=== PATIENT | male | born 1950 | race Hispanic/Latino ===

== ENCOUNTER 2016-10-29 17:13 | Inpatient (IN) | payer MEDICARE ==
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
[2016-10-29 18:29] LABS: BASO # 0.1 K/uL (0.0-0.2); EOS # 0.5 K/uL (0.0-0.7); EOS % 6.3 % (0.0-4.0); HEMOGLOBIN 11.8 g/dL (12.0-18.0); LYMPH # 1.8 K/uL (1.0-4.3); MEAN CELL VOLUME 94.1 fl (80.0-94.0); MEAN CORPUSCULAR HEMOGLOBIN 31.1 pg (27.0-31.0); MEAN CORPUSCULAR HGB CONC 33.1 g/dL (33.0-37.0); MEAN PLATELET VOLUME 8.8 fl (7.2-11.7); MONO # 0.7 K/uL (0.0-0.8); MONO % 9.1 % (0.0-10.0); NEUT # 4.6 K/uL (1.8-7.0); NEUT % 59.6 % (50.0-75.0); NRBC % 0.1 % (0.0-0.0); RBC 3.81 Mil/uL (4.40-5.90); RED CELL DISTRIBUTION WIDTH 15.7 % (11.5-14.5); WHITE BLOOD COUNT 7.7 K/uL (4.8-10.8)
[2016-10-29 18:39] LABS: ALB/GLOB RATIO 1.3 (1.0-2.1); ALBUMIN 4.3 g/dL (3.5-5.0); ALT/SGPT 28 U/L (21-72); AST/SGOT 42 U/L (17-59); BLOOD UREA NITROGEN 23 mg/dl (9-20); CALCIUM 9.1 mg/dL (8.4-10.2); GFR AFRICAN-AMERICAN > 60; GFR NON-AFRICAN AMERICAN > 60
[2016-10-29 19:13] LABS: URINE BILIRUBIN NEGATIVE (NEGATIVE); URINE BLOOD LARGE (NEGATIVE); URINE GLUCOSE (UA) NEGATIVE (Normal)
[2016-10-29 19:15] LABS: URINE NITRATE NEGATIVE (NEGATIVE); URINE PROTEIN 100 mg/dL (NEGATIVE); URINE UROBILINOGEN 0.2 mg/dL (0.2-1.0)
[2016-10-29 19:16] LABS: URINE LEUKOCYTE ESTERASE MODERATE Leu/uL (Negative)
[2016-10-29 19:22] LABS: URINE BACTERIA FEW (<OCC); URINE CLARITY CLOUDY (Clear); URINE COLOR DARK YELLOW (YELLOW); URINE HYALINE CAST >20 /hpf (0-2)
[2016-10-29 19:23] LABS: GRANULAR CAST 12 /lpf (0-1)
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
[2016-10-30] MEDS ORDERED: Acetaminophen 650mg/20.3ml solution UD PO PRN ×2 (00:03→11:15)
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
[2016-10-30] MEDS ORDERED: Sod Polystyrene Sulf 15 gm/60 ml Oral Susp PO ONE (07:53)
[2016-10-30] MEDS: Enoxaparin 40 mg Syringe SC SCH (08:50)
[2016-10-30] MEDS: Pantoprazole 40 mg EC Tab PO SCH (08:51)
--- NOTE | 2016-10-30 09:34 | RAD ---
HISTORY: admission COMPARISON: No prior. TECHNIQUE: Chest PA and lateral FINDINGS: LUNGS: The lungs are well inflated and clear. PLEURA: No significant pleural effusion identified. No pneumothorax apparent. CARDIOVASCULAR: Normal. OSSEOUS STRUCTURES: There is mild multilevel degenerative disc disease. VISUALIZED UPPER ABDOMEN: Normal. OTHER FINDINGS: None. IMPRESSION: No active pulmonary disease.
[2016-10-30 11:35] LABS: MEAN CELL VOLUME 93.5 fl (80.0-94.0); MEAN CORPUSCULAR HEMOGLOBIN 30.9 pg (27.0-31.0); RBC 3.56 Mil/uL (4.40-5.90); RED CELL DISTRIBUTION WIDTH 15.6 % (11.5-14.5); WHITE BLOOD COUNT 8.2 K/uL (4.8-10.8)
[2016-10-30 11:56] LABS: BLOOD UREA NITROGEN 15 mg/dl (9-20); CALCIUM 8.7 mg/dL (8.4-10.2); GFR AFRICAN-AMERICAN > 60; GFR NON-AFRICAN AMERICAN > 60
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
[2016-10-30] MEDS ORDERED: Povidone Iodine Topical 10% Sol ONE (14:16)
--- NOTE | 2016-10-30 14:52 | CARD ---
APPROVED REPORT EKG Measurement Heart [id number] <Conclusion> Sinus rhythm with occasional premature ventricular complexes Otherwise normal ECG
--- NOTE | 2016-10-30 15:44 | RAD ---
PROCEDURE: Radiographs of the pelvis. HISTORY: pelvic fracture evaluate bone status COMPARISON: None. FINDINGS: BONES: There is an acute comminuted fracture in the left iliac bone with 17 mm distraction of fracture fragments. There is also probable intra-articular extension into the sacroiliac joint. JOINTS: There is mild degenerative osteoarthrosis in the hip joints, worse on the left. Sacroiliac Joints: The right sacroiliac joint is normal. There is widening of the superior left sacroiliac joint. Pubic Symphysis: Unremarkable. OTHER FINDINGS: None. IMPRESSION: Acute comminuted fracture in the left iliac bone with 17 mm distraction of fracture fragments and intra-articular extension.
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
[2016-10-31 08:20] LABS: HEMOGLOBIN 11.6 g/dL (12.0-18.0); MEAN CELL VOLUME 93.2 fl (80.0-94.0); MEAN CORPUSCULAR HEMOGLOBIN 31.2 pg (27.0-31.0); MEAN CORPUSCULAR HGB CONC 33.4 g/dL (33.0-37.0); RBC 3.71 Mil/uL (4.40-5.90); WHITE BLOOD COUNT 6.4 K/uL (4.8-10.8)
[2016-10-31 08:41] LABS: ALB/GLOB RATIO 1.3 (1.0-2.1); ALBUMIN 3.8 g/dL (3.5-5.0); ALT/SGPT 34 U/L (21-72); AST/SGOT 19 U/L (17-59); BLOOD UREA NITROGEN 10 mg/dl (9-20); CALCIUM 8.8 mg/dL (8.4-10.2); GFR AFRICAN-AMERICAN > 60; GFR NON-AFRICAN AMERICAN > 60
[2016-10-31] MEDS: Enoxaparin 40 mg Syringe SC SCH (09:08)
[2016-10-31] MEDS: Pantoprazole 40 mg EC Tab PO SCH (09:08)
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
[2016-11-01] MEDS: Pantoprazole 40 mg EC Tab PO SCH (08:44)
[2016-11-01] MEDS: Enoxaparin 40 mg Syringe SC SCH (08:44)
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
[2016-11-02] MEDS: Pantoprazole 40 mg EC Tab PO SCH (11:08)
[2016-11-02] MEDS: Enoxaparin 40 mg Syringe SC SCH (11:08)
[2016-11-02 17:00] VITALS: BP 105/67; PULSE 111; RESP 18; TEMP 98.2
[2016-11-02] MEDS ORDERED: SILVASORB ANTIMICROBIAL WOUND GEL TP SCH (17:00)
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
[2016-11-04 08:32] VITALS: O2SAT 98
== END 2016-11-02 23:00 | DRG 561 ==
LOC: H.ER 17:13 → H.ERHOLD 18:30 → H.MEDSURG1 22:55
PROVIDERS: ADMIT Family Medicine Geriatric Medicine; ATTEND Family Medicine Geriatric Medicine
DX: S32.302D Unspecified fracture of left ilium, subsequent encounter for fracture with routine healing (principal); K29.70 Gastritis, unspecified, without bleeding; Z93.3 Colostomy status; S52.601D Unspecified fracture of lower end of right ulna, subsequent encounter for closed fracture with routine healing; S22.41XD Multiple fractures of ribs, right side, subsequent encounter for fracture with routine healing; V89.2XXD Person injured in unspecified motor-vehicle accident, traffic, subsequent encounter; N40.0 Benign prostatic hyperplasia without lower urinary tract symptoms; M19.90 Unspecified osteoarthritis, unspecified site; S32.009D Unspecified fracture of unspecified lumbar vertebra, subsequent encounter for fracture with routine healing

== ENCOUNTER 2016-11-02 16:57 | Inpatient (IN) | payer MEDICARE ==
[2016-11-03 00:25] VITALS: BMI 28.8
[2016-11-03] MEDS: SILVASORB ANTIMICROBIAL WOUND GEL TP SCH ×2 (08:51→16:34)
[2016-11-03] MEDS: Pantoprazole 40 mg EC Tab PO SCH (08:52)
[2016-11-03] MEDS ORDERED: SILVASORB ANTIMICROBIAL WOUND GEL TP SCH (09:00)
--- NOTE | 2016-11-03 11:00 | RAD ---
PROCEDURE: Radiographs of the Lumbar Spine. HISTORY: R/O fracture COMPARISON: No prior. FINDINGS: BONES: Vertebral bodies are maintained in height. Transverse processes and posterior elements are intact. Normal vertebral alignment is maintained. There is no evidence of spondylolysis. There are spondylotic changes with osteophytes seen about multiple intervertebral disc spaces. DISC SPACES: Unremarkable. OTHER FINDINGS: Previously described comminuted fracture of the left iliac bone is partially visualized per IMPRESSION: No acute lumbar fracture. Spondylotic changes throughout lumbar spine. Left iliac fracture identified.
[2016-11-03 15:07] LABS: HEMOGLOBIN 11.4 g/dL (12.0-18.0); MEAN CELL VOLUME 92.7 fl (80.0-94.0); MEAN CORPUSCULAR HEMOGLOBIN 31.2 pg (27.0-31.0); MEAN CORPUSCULAR HGB CONC 33.6 g/dL (33.0-37.0); RBC 3.66 Mil/uL (4.40-5.90); RED CELL DISTRIBUTION WIDTH 15.6 % (11.5-14.5)
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
[2016-11-03 15:15] LABS: BLOOD UREA NITROGEN 20 mg/dl (9-20); CALCIUM 9.3 mg/dL (8.4-10.2); GFR AFRICAN-AMERICAN > 60; GFR NON-AFRICAN AMERICAN > 60
[2016-11-03] MEDS: Enoxaparin 40 mg Syringe SC SCH (15:35)
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
[2016-11-04] MEDS: Enoxaparin 40 mg Syringe SC SCH (08:50)
[2016-11-04] MEDS: Pantoprazole 40 mg EC Tab PO SCH (08:50)
[2016-11-04] MEDS: SILVASORB ANTIMICROBIAL WOUND GEL TP SCH ×2 (08:50→17:01)
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
--- NOTE | 2016-11-04 17:56 | CP.PCM.PN ---
Subjective - Date & Time of Evaluation Date of Evaluation: 11/04/16 Time of Evaluation: 17:55 - Subjective Subjective: Patient seen in room pain is well controlled denies sob/cp improving colostomy care PT/OT to continue to help increase functional independence Team conference for d/c planning Pain: controlled Vascular: no evidence of DVT GI: No evidence of constipation or diarrhea, has colostomy Patient continues to be an excellent acute rehabilitation candidate and will have continued wound care, pain management, PT, OT and recreational therapy to help facilitate a safe and appropriate d/c plan The patients plan was discussed in great detail in team conference. This was then discussed with the patient at length. The discussions directly impact on the patients plan of care. Please see the note for more details Will get follow up x-ray when clarify length of stay Objective - Vital Signs/Intake and Output Vital Signs (last 24 hours): Temp Pulse Resp BP Pulse Ox 98.1 F 66 21 121/72 98 11/04/16 11:50 11/04/16 11:50 11/04/16 11:50 11/04/16 11:50 11/04/16 08:12 Intake and Output: 11/04/16 11/04/16 06:59 18:59 Intake Total 400 Output Total 1600 250 Balance -1200 -250 - Medications Medications: Current Medications Acetaminophen (Tylenol 650mg/20.3ml Solution Ud) 1,000 mg PO Q8H PRN PRN Reason: Pain, Mild (1-3) Enoxaparin Sodium (Lovenox) 40 mg SC DAILY [facility] PRN Reason: Protocol Last Admin: 11/04/16 08:50 Dose: 40 mg Home Med (Alfuzosin Hcl [Uroxatral]) 10 mg PO DAILY [facility] Last Admin: 11/04/16 12:21 Dose: 10 mg Ketorolac Tromethamine (Toradol) 15 mg IVP Q6 PRN PRN Reason: Pain, severe (8-10) Pantoprazole Sodium (Protonix Ec Tab) 40 mg PO DAILY [facility] Last Admin: 11/04/16 08:50 Dose: 40 mg Zolpidem Tartrate (Ambien) 5 mg PO HS PRN PRN Reason: Sleep Last Admin: 11/04/16 00:51 Dose: 5 mg - Labs Labs: 11/03/16 14:45 11/03/16 14:45
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
[2016-11-05] MEDS: Pantoprazole 40 mg EC Tab PO SCH (09:38)
[2016-11-05] MEDS: Enoxaparin 40 mg Syringe SC SCH (09:38)
[2016-11-05] MEDS: SILVASORB ANTIMICROBIAL WOUND GEL TP SCH ×3 (09:39→21:41)
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
[2016-11-06 07:16] LABS: HEMOGLOBIN 10.4 g/dL (12.0-18.0); MEAN CORPUSCULAR HEMOGLOBIN 31.5 pg (27.0-31.0); MEAN CORPUSCULAR HGB CONC 33.9 g/dL (33.0-37.0); RBC 3.32 Mil/uL (4.40-5.90); RED CELL DISTRIBUTION WIDTH 15.3 % (11.5-14.5)
[2016-11-06] MEDS: Enoxaparin 40 mg Syringe SC SCH (09:10)
[2016-11-06] MEDS: Pantoprazole 40 mg EC Tab PO SCH (09:10)
[2016-11-06] MEDS: SILVASORB ANTIMICROBIAL WOUND GEL TP SCH ×2 (09:11→21:46)
--- NOTE | 2016-11-06 13:20 | CP.PCM.PN ---
Subjective - Date & Time of Evaluation Date of Evaluation: 11/06/16 Time of Evaluation: 13:18 - Subjective Subjective: multiple fractures Discussed with ortho he will be NWB on right UE for total of 6 weeks from the 10/11/16 surgery and 3 more weeks for the left LE I have discussed this at length with Jarvis will get PFRW for d/c and get home PT and VNS making great progress Objective - Vital Signs/Intake and Output Vital Signs (last 24 hours): Temp Pulse Resp BP Pulse Ox 97.5 F L 63 18 133/86 99 11/06/16 07:36 11/06/16 07:36 11/06/16 07:36 11/06/16 07:36 11/06/16 07:36 Intake and Output: 11/06/16 11/06/16 06:59 18:59 Intake Total 500 Output Total 1000 Balance -500 - Medications Medications: Current Medications Acetaminophen (Tylenol 650mg/20.3ml Solution Ud) 1,000 mg PO Q8H PRN PRN Reason: Pain, Mild (1-3) Enoxaparin Sodium (Lovenox) 40 mg SC DAILY [facility] PRN Reason: Protocol Last Admin: 11/06/16 09:10 Dose: 40 mg Home Med (Patient's Own Medication) 1 unit PO BID [facility] Ketorolac Tromethamine (Toradol) 15 mg IVP Q6 PRN PRN Reason: Pain, severe (8-10) Pantoprazole Sodium (Protonix Ec Tab) 40 mg PO DAILY [facility] Last Admin: 11/06/16 09:10 Dose: 40 mg Zolpidem Tartrate (Ambien) 5 mg PO HS PRN PRN Reason: Sleep Last Admin: 11/06/16 00:45 Dose: 5 mg - Labs Labs: 11/06/16 05:55 11/03/16 14:45
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
[2016-11-06] MEDS ORDERED: ALFUZOSIN 10 MG PO SCH (17:00)
[2016-11-06] MEDS: ALFUZOSIN 10 MG PO SCH (20:11)
[2016-11-07 03:56] LABS: SQUAMOUS EPITHIAL < 1 /hpf (0-5); URINE BACTERIA OCC (<OCC); URINE BILIRUBIN NEGATIVE (NEGATIVE); URINE BLOOD LARGE (NEGATIVE); URINE CLARITY SLIGHTY-CLOUDY (Clear); URINE COLOR YELLOW (YELLOW); URINE GLUCOSE (UA) NEG (Normal); URINE LEUKOCYTE ESTERASE LARGE Leu/uL (Negative); URINE NITRATE NEGATIVE (NEGATIVE); URINE PROTEIN 100 mg/dL (NEGATIVE); URINE UROBILINOGEN 0.2-1.0 mg/dL (0.2-1.0)
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
[2016-11-07 07:49] LABS: BASO % 0.6 % (0.0-2.0); EOS # 0.2 K/uL (0.0-0.7); HEMOGLOBIN 10.4 g/dL (12.0-18.0); LYMPH # 1.4 K/uL (1.0-4.3); LYMPH % 28.8 % (20.0-40.0); MEAN CELL VOLUME 92.8 fl (80.0-94.0); MEAN CORPUSCULAR HEMOGLOBIN 30.5 pg (27.0-31.0); MEAN CORPUSCULAR HGB CONC 32.8 g/dL (33.0-37.0); MEAN PLATELET VOLUME 8.5 fl (7.2-11.7); MONO # 0.5 K/uL (0.0-0.8); MONO % 9.5 % (0.0-10.0); NEUT # 2.8 K/uL (1.8-7.0); NEUT % 56.1 % (50.0-75.0); RBC 3.41 Mil/uL (4.40-5.90); RED CELL DISTRIBUTION WIDTH 15.3 % (11.5-14.5)
[2016-11-07 08:01] LABS: IRON 38 ug/dL (49-181)
[2016-11-07 08:10] LABS: % IRON SATURATION 18 % (20-55); TOTAL IRON BINDING CAPACITY 215 ug/dL (250-450)
[2016-11-07] MEDS: Enoxaparin 40 mg Syringe SC SCH (08:28)
[2016-11-07] MEDS: ALFUZOSIN 10 MG PO SCH ×2 (08:28→17:39)
[2016-11-07 08:30] LABS: FERRITIN 84.9 ng/mL
[2016-11-07] MEDS: SILVASORB ANTIMICROBIAL WOUND GEL TP SCH ×2 (08:30→20:35)
[2016-11-07] MEDS: Pantoprazole 40 mg EC Tab PO SCH (08:30)
[2016-11-08] MEDS: Enoxaparin 40 mg Syringe SC SCH (08:59)
[2016-11-08] MEDS: ALFUZOSIN 10 MG PO SCH ×2 (09:00→18:50)
[2016-11-08] MEDS: SILVASORB ANTIMICROBIAL WOUND GEL TP SCH ×2 (09:00→20:48)
[2016-11-08] MEDS: Pantoprazole 40 mg EC Tab PO SCH (09:00)
[2016-11-09] MEDS: ALFUZOSIN 10 MG PO SCH ×2 (08:46→16:57)
[2016-11-09] MEDS: Enoxaparin 40 mg Syringe SC SCH (08:46)
[2016-11-09] MEDS: SILVASORB ANTIMICROBIAL WOUND GEL TP SCH (08:46)
[2016-11-09] MEDS: Pantoprazole 40 mg EC Tab PO SCH (08:46)
[2016-11-09] MEDS: Acetaminophen 650mg/20.3ml solution UD PO PRN (16:56)
--- NOTE | 2016-11-09 17:31 | CP.PCM.PN ---
Subjective - Date & Time of Evaluation Date of Evaluation: 11/09/16 Time of Evaluation: 17:29 - Subjective Subjective: Patient seen in room His left inguinal wound is healing very nicely It is pea-sized opening now and I will change to Iodosorb now that the hydrocel will not fit in pain is controlled I have ordered x-rays and colostomy supplies and answered a multitude of questions as well set for d/c home 11/10/16 Objective - Vital Signs/Intake and Output Vital Signs (last 24 hours): Temp Pulse Resp BP Pulse Ox 98.3 F 74 20 138/74 95 11/09/16 09:31 11/09/16 09:31 11/09/16 09:31 11/09/16 09:31 11/09/16 09:31 - Medications Medications: Current Medications Acetaminophen (Tylenol 650mg/20.3ml Solution Ud) 1,000 mg PO Q8H PRN PRN Reason: Pain, Mild (1-3) Last Admin: 11/09/16 16:56 Dose: 1,000 mg Cadexomer Iodine (Iodosorb) 1 applic TOP DAILY [facility] Home Med (Patient's Own Medication) 1 unit PO BID [facility] Last Admin: 11/09/16 16:57 Dose: 1 unit Pantoprazole Sodium (Protonix Ec Tab) 40 mg PO DAILY [facility] Last Admin: 11/09/16 08:46 Dose: 40 mg Phenazopyridine HCl (Pyridium) 200 mg PO BID [facility] Stop: 11/14/16 17:01 Last Admin: 11/09/16 16:55 Dose: 200 mg Zolpidem Tartrate (Ambien) 5 mg PO HS PRN PRN Reason: Sleep Last Admin: 11/06/16 00:45 Dose: 5 mg - Labs Labs: 11/07/16 05:30 11/03/16 14:45
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
[2016-11-10 07:35] VITALS: BP 133/83; PULSE 84; RESP 18; TEMP 98.8; O2SAT 96
[2016-11-10] MEDS: ALFUZOSIN 10 MG PO SCH (08:44)
[2016-11-10] MEDS: Pantoprazole 40 mg EC Tab PO SCH (08:45)
[2016-11-10] MEDS ORDERED: Iodine 0.9% GEL TOP SCH (09:00)
[2016-11-10] MEDS: Acetaminophen 650mg/20.3ml solution UD PO PRN (11:36)
--- NOTE | 2016-11-10 20:48 | CP.PCM.PN ---
Subjective - Date & Time of Evaluation Date of Evaluation: 11/10/16 Time of Evaluation: 22:22 - Subjective Subjective: Doing well Objective - Vital Signs/Intake and Output Vital Signs (last 24 hours): Temp Pulse Resp BP Pulse Ox 98.8 F 84 18 133/83 96 11/10/16 07:34 11/10/16 07:34 11/10/16 07:34 11/10/16 07:34 11/10/16 07:34 - Labs Labs: 11/07/16 05:30 11/03/16 14:45 - Respiratory Exam Respiratory Exam: NORMAL BREATHING PATTERN - Cardiovascular Exam Cardiovascular Exam: REGULAR RHYTHM - GI/Abdominal Exam GI & Abdominal Exam: Normal Bowel Sounds Assessment and Plan - Assessment and Plan (Free Text) Assessment: S/P [facility] with colostomy bag Left iliac bone comminuted fracture, S/P ORIF right distal ulnar fracture 4 right rib fractures Acute Rehab Physiatry Hx LS fx ? xrays negative BPH Saucedo removed Uraxitol increased Urology
== END 2016-11-10 13:24 | disposition home health service (06) | DRG 560 ==
PROVIDERS: ADMIT Family Medicine Geriatric Medicine; ATTEND Family Medicine Geriatric Medicine
PROC: F07L6FZ Therapeutic Exercise Treatment of Musculoskeletal System - Lower Back / Lower Extremity using Assistive, Adaptive, Supportive or Protective Equipment (ICD-10-PCS; principal; 2016-11-02)
PROC: F07Z9FZ Gait Training/Functional Ambulation Treatment using Assistive, Adaptive, Supportive or Protective Equipment (ICD-10-PCS; 2016-11-02)
PROC: F08Z4ZZ Home Management Treatment (ICD-10-PCS; 2016-11-02)
DX: S32.302D Unspecified fracture of left ilium, subsequent encounter for fracture with routine healing (principal); N13.8 Other obstructive and reflux uropathy; N40.0 Benign prostatic hyperplasia without lower urinary tract symptoms; Z93.3 Colostomy status; S52.601D Unspecified fracture of lower end of right ulna, subsequent encounter for closed fracture with routine healing; S22.41XD Multiple fractures of ribs, right side, subsequent encounter for fracture with routine healing; V43.62XD Car passenger injured in collision with other type car in traffic accident, subsequent encounter; N40.1 Benign prostatic hyperplasia with lower urinary tract symptoms

== ENCOUNTER 2016-11-13 17:01 | Emergency (ER) | payer MEDICARE ==
[2016-11-13 17:01] VITALS: BMI 28.8
[2016-11-13 17:08] VITALS: TEMP 99.3; O2SAT 98
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
[2016-11-13 17:52] LABS: BASO % 0.6 % (0.0-2.0); EOS # 0.2 K/uL (0.0-0.7); HEMOGLOBIN 10.9 g/dL (12.0-18.0); LYMPH # 1.2 K/uL (1.0-4.3); LYMPH % 17.6 % (20.0-40.0); MEAN CELL VOLUME 93.3 fl (80.0-94.0); MEAN CORPUSCULAR HEMOGLOBIN 30.6 pg (27.0-31.0); MEAN CORPUSCULAR HGB CONC 32.8 g/dL (33.0-37.0); MEAN PLATELET VOLUME 8.2 fl (7.2-11.7); MONO # 0.6 K/uL (0.0-0.8); MONO % 8.7 % (0.0-10.0); NEUT # 4.7 K/uL (1.8-7.0); NEUT % 70.1 % (50.0-75.0); RBC 3.55 Mil/uL (4.40-5.90); WHITE BLOOD COUNT 6.7 K/uL (4.8-10.8)
[2016-11-13 18:10] LABS: ALB/GLOB RATIO 1.4 (1.0-2.1); ALBUMIN 3.7 g/dL (3.5-5.0); ALT/SGPT 30 U/L (21-72); AST/SGOT 16 U/L (17-59); BLOOD UREA NITROGEN 14 mg/dl (9-20); CALCIUM 8.2 mg/dL (8.4-10.2); GFR AFRICAN-AMERICAN > 60; GFR NON-AFRICAN AMERICAN > 60
[2016-11-13 18:13] LABS: INR 1.1 (0.9-1.2); PARTIAL THROMBOPLASTIN TIME 28.2 Seconds (25.6-37.1); PROTHROMBIN TIME 12.9 Seconds (9.8-13.1)
--- NOTE | 2016-11-13 18:31 | US ---
HISTORY: R/O DVT . PRIORS: None. FINDINGS: 2-D, color and duplex Doppler analysis of the lower extremity venous circulation using routine protocol from the femoral veins through the popliteal veins. Posterior tibial veins are also assessed Venous compressibility: Normal. Flow and augmentation patterns: Normal. Visualized veins upper third of calf: Normal. Eisenberg cyst: None. IMPRESSION: No sonographic or Doppler evidence for DVT in left lower extremity.
[2016-11-13 19:41] VITALS: BP 132/60; PULSE 77; RESP 16
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
== END 2016-11-13 20:14 | disposition home or self-care (01) ==
LOC: H.ER 17:01
DX: R06.00 Dyspnea, unspecified (principal)

== ENCOUNTER 2017-08-24 06:12 | Day surgery (SDC) | payer MEDICARE ==
[2017-08-19 14:12] VITALS: BMI 28.1
[2017-08-24] MEDS ORDERED: Lactated Ringer's 1,000 ML IV ONE (07:00)
[2017-08-24] MEDS ORDERED: ePHEDrine 50 mg/ml Inj ONE (07:27)
[2017-08-24] MEDS ORDERED: Propofol 10 mg/ml Inj (20 ML) ONE ×2 (07:27→08:12)
[2017-08-24] MEDS ORDERED: Midazolam 2 MG/2 ML VIAL ONE (07:28)
[2017-08-24] MEDS ORDERED: Succinylcholine 200 mg/10 ml Inj IV ONE (07:28)
[2017-08-24] MEDS ORDERED: Lidocaine 2% Inj (20ml) ONE (07:49)
[2017-08-24] MEDS ORDERED: Bupivacaine 0.5% Inj(30mL) ONE (07:50)
[2017-08-24] MEDS ORDERED: Lidocaine 2% Inj (20ml) IJ ONE (08:16)
[2017-08-24] MEDS ORDERED: Oxycodone/Acetaminophen 5/325 mg Tab PO PRN (08:53)
[2017-08-24] MEDS ORDERED: HYDROmorphone 0.5 mg/0.5 ml ISec IVP PRN (08:53)
--- NOTE | 2017-08-24 08:53 | PCM.SURG1 ---
Surgeon's Initial Post Op Note - Surgeon's Notes Surgeon: Lorin Card MD Accelerator Technician: Gina Tarango PA-C Type of Anesthesia: IV Sedation, Local Anesthesia Administered By: Dr. Alvarez Pre-Operative Diagnosis: Left 4th ring trigger finger Operative Findings: tourniquet:17min @250mmHg Post-Operative Diagnosis: same Operation Performed: Left 4th trigger finger release Specimen/Specimens Removed: none Estimated Blood Loss: EBL {In ML}: 0 Blood Products Given: N/A Drains Used: No Drains Post-Op Condition: Fair Date of Surgery/Procedure: 08/24/17 Time of Surgery/Procedure: 08:53
[2017-08-24] MEDS ORDERED: Lactated Ringer's 1,000 ML IV SCH (09:00)
[2017-08-24 09:38] VITALS: RESP 18
[2017-08-24 12:22] VITALS: TEMP 98
[2017-08-24 12:27] VITALS: BP 134/71; PULSE 61; O2SAT 96
--- NOTE | 2017-08-25 08:16 | OP ---
PROCEDURE DATE: 08/24/2017 PREOPERATIVE DIAGNOSIS: Left fourth digit stenosing tenosynovitis. POSTOPERATIVE DIAGNOSIS: Left fourth digit stenosing tenosynovitis. PROCEDURE: 1. Decompression A1 tay release of left fourth digit. 2. Local tenosynovectomy of left fourth digit. SURGEON: Blair Card M.D. MANAGER MARKET: NICOLE TYPE OF ANESTHESIA: Regional and supplemental intravenous sedation. OPERATIVE FINDINGS: fibrosis of the A1 tay with severe reactive tenosynovitis and stenosing of the underlying flexor tendons. ESTIMATED BLOOD LOSS: None. COMPLICATIONS: None. SPECIMEN: None. DESCRIPTION OF PROCEDURE: After successful administration of regional anesthesia and IV antibiotics, a well-padded tourniquet was applied to the patient's left upper extremity. The entire extremity was then prepped and draped in standard surgical fashion. With the sterile marking pen, the proposed incision was outlined, this was a longitudinal incision extending from the distal palmar crease to the base of the digit. The arm was then elevated and exsanguinated with an esmarch bandage, tourniquet was inflated to 250 mmHg and then esmarch was removed. Attention was directed to the small finger, the incision was made, then superficial veins were cauterized with gentle dissection, the subcutaneous tissue with neurovascular bundles were from the underlying flexor mechanism. Sharply the A1 tay was identified and was noted to be markedly fibrotic, with a scalpel. This tay was completely incised with care taken to preserve the A2 tay. The tendons were lifted and local tenosynovectomy was performed. The wound was irrigated, hemostasis was achieved. The wound was closed with 4-0 nylon interrupted mattress suture. Sterile fluff dressing was used to protect the surgical repairs. The patient tolerated the procedure well and returned to recovery room in excellent condition. Blair Card MD
== END 2017-08-24 12:05 | disposition home or self-care (01) ==
LOC: H.OPSURG 06:12
PROVIDERS: ATTEND Orthopaedic Surgery
DX: M65.351 Trigger finger, right little finger (principal); M65.88 Other synovitis and tenosynovitis, other site
CPT/HCPCS: 26055; 26145; J0690; J2001; J2250; J2704; J3010; J7030; J7120